=== PATIENT | male | born 1965 | race Caucasian/White ===

== ENCOUNTER 2023-07-15 14:04 | Outpatient (REF) | payer BC, SELFPAY ==
[2023-07-15 16:32] LABS: Urine Cytology See Pathology rpt
== END 2023-07-15 14:05 | disposition home or self-care (01) ==
LOC: HO.LAB 14:04
PROVIDERS: Visit Provider Nurse Practitioner Family
DX: R31.29 Other microscopic hematuria (principal)
CPT/HCPCS: 81003; 88112

== ENCOUNTER 2023-07-15 14:04 | Outpatient (AMB) | payer BC, SELFPAY ==
--- NOTE | 2023-07-15 14:11 | A.OFFVIS_ITS ---
Intake Intake Visit Reasons: Elevated PSA Intake Note: NEW Patient presents today to established treatment for: Elevated PSA Meds- None Allergies to Antibiotic- No Known Allergies Blood Thinner- None Patient stated he feels well today. 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 He has a past medical history of nicotine dependence, insomnia, lumbago, hypercholesteremia, hematuria, orchialgia, CVA, hypertension, and elevated PSA. In discussion with the patient today he reports having followed up with his PCP for his annual visit at which time he was noted to have an elevated PSA and recommendations were made for Urology referral for further assessment evaluation. In review of patient's chart it appears PSA 06/05 5.5. He reports a previous urological history of proximally 10 years ago and having had a procedure to open up his bladder neck. He reports prior to this procedure 10 years ago he had been experiencing lower urinary tract symptoms however since this procedure he has had no issues with his lower urinary tract symptoms. He denies urinary urgency, urinary frequency, incontinence, nocturia, hematuria, dysuria, foul smelling urine, changes to urinary stream, flank pain, fever, and or chills. He is happy with his current voiding parameters. JAN- smooth, no masses or nodules palpated. In office urinalysis results reviewed with the patient today. Microscopic hematuria noted. Does report a longstanding history of nicotine dependence of approximately 25 years. He reports smoking approximately half a pack per day. He otherwise offers no other issues or concerns at this time. [facility] Medical History (Updated 07/15/23 @ 20:12 [facility] Tobacco abuse disorder Insomnia Lumbago Hypercholesteremia Hematuria Orchialgia CVA (cerebral vascular accident) Hypertension Elevated PSA Social History (Updated 07/15/23 @ 14:49 by Marielos Ramsey CMA) Alcohol intake: former Comment: very few Patient Tobacco Use Status: Current everyday Tobacco user Tobacco use type: Cigarette Years Smoked: 23 Review of Systems Const Reports no additional complaints Eyes Reports no additional complaints ENT Reports no additional complaints Card Reports as per HPI Resp Reports no additional complaints GI Reports no additional complaints Reports as per HPI Musc Reports as per HPI Neuro Reports as per HPI Psych Reports no additional complaints Endo Reports no additional complaints Venkatesh/Lymph Reports no additional complaints Aller/Immun Reports no additional complaints Physical Exam Const General: cooperative, healthy appearing, comfortable, no acute distress, well developed, alert and awake Orientation/consciousness: patient oriented x3 Limitations: no limitations HEENT Head: Yes normal to inspection, Yes normocephalic and Yes atraumatic Ears: hearing grossly normal bilaterally Eyes General: appearance normal, both eyes and all related structures Neck Neck: Yes normal visual inspection and Yes trachea midline Chest Chest palpation & inspection: normal inspection of the chest Resp Effort & Inspection: normal respiratory effort and able to speak in complete sentences Cardio Rate: regular rate GI Inspection: Yes normal to inspection General: Yes no CVA tenderness Back/Spine/Pelvis Back: no CVA tenderness Skin General skin exam: no rashes or lesions noted Neuro General: patient oriented x3 Extrem General: Yes normal to inspection Psych Appearance: grossly normal and well kempt Mental Status: mental status grossly normal Speech and movement: Normal speech and movement present and Clear speech present Affect: normal affect Attitude: cooperative Thought process: Normal thought process present Thought content: Normal thought content present Insight: Fair insight present (Psych) Judgement: Fair judgement present (Psych) Results AMB Urinalysis, Automated UA Leukoctes 0 Luis/uL Last Edit by Marielos Ramsey CMA on 07/15/23 14 :32 UA Nitrite Negative Last Edit by Marielos Ramsey CMA on 07/15/23 14: 32 UA Urobilinogen 0.2 mg/dL Last Edit by Marielos Ramsey CMA on 4 14:32 UA Protein 0 mg/dL Last Edit by Marielos Ramsey CMA on 07/15/23 14:32 UA pH 6.0 Last Edit by Marielos Ramsey CMA on 07/15/23 14:32 UA Blood 25 Shane/uL Last Edit by Marielos Ramsey CMA on 07/15/23 14:32 UA Specific Huxley 1.020 Last Edit by Marielos Ramsey CMA on 14:32 UA Ketone Negative Last Edit by Marielos Ramsey CMA on 07/15/23 14:3 2 UA Bilirubin 0 mg/dL Last Edit by Marielos Ramsey CMA on 07/15/23 14: 32 UA Glucose 0 mg/dL Last Edit by Marielos Ramsey CMA on 07/15/23 14:32 Results Reviewed Results Reviewed: Laboratory Last Values Urine pH (Auto) 6.0 07/15/23 14:31 Specific Huxley (Auto) 1.020 07/15/23 14:31 Urine Protein (Auto) 0 mg/dL 07/15/23 14:31 Glucose (UA)(Auto) 0 mg/dL 07/15/23 14:31 Urine Ketones (Auto) Negative 07/15/23 14:31 Urine Blood (Auto) 25 Shane/uL 07/15/23 14:31 Urine Nitrite (Auto) Negative 07/15/23 14:31 Urine Bilirubin (Auto) 0 mg/dL 07/15/23 14:31 Urine Urobilinogen (Auto) 0.2 mg/dL 07/15/23 14:31 Leukocyte Esterase (Auto) 0 Luis/uL 07/15/23 14:31 Assessment & Plan Assessment & Plan (1) Elevated PSA: Code(s): R97.20 - Elevated prostate specific antigen [PSA] (2) Microscopic hematuria: Code(s): R31.29 - Other microscopic hematuria (3) Nicotine dependence: Code(s): F17.200 - Nicotine dependence, unspecified, uncomplicated Plan In office urinalysis results reviewed with the patient today; as noted above; will send for urine cytology. Discussed at length potential causes for elevated PSA. Discussed further treatment options at length. He denies any bothersome urinary issues or concerns. He reports be happy with current voiding parameters. Will obtain redraw of PSA with no sex the night before, no caffeine morning of, and no heavy lifting 1-2 days prior. Will obtain retroperitoneal ultrasound for further assessment evaluation. JAN performed as noted above. Discussed possible near future prostate biopsy verses MRI of the prostate versus surveillance monitoring; discussed risks and benefits of these interventions at length. Discussed at length potential causes of microscopic hematuria Discussed microscopic hematuria workup versus surveillance monitoring; risks and benefits of these interventions were discussed. Follow-up in 6-8 weeks with imaging and labs to be completed prior; or sooner with any issues, concerns, and or questions. Orders: Orders PSA,Total (Free>4and<10) Today R97.20 - Elevated prostate specific antigen [PSA] AMB Urinalysis Automated Today R33.9 - Retention of urine, unspecified Urine Cytology Today R31.29 - Other microscopic hematuria US retroperitoneal comp Today R39.9 - Unspecified symptoms and signs involving the genitourinary system, R97.20 - Elevated prostate specific antigen [PSA] Patient Instructions: The patient had an opportunity to ask questions regarding the treatment plan. All questions were answered. Physical exam, labs, and imaging were discussed and reviewed in detail. As well as risks, benefits, and discussion of treatment choices. No major barriers to understanding were identified. The patient expressed understanding and agreement with the above treatment plan. The patient was made aware they should contact our office by phone for worsening of their current condition, the appearance of new symptoms, or with any questions or concerns. Compliance is encouraged with any medications and follow up testing that is ordered. It is a privilege to be allowed the opportunity to participate in? your urological care.? Again, if you have any questions or concerns If you have any questions or concerns please do not hesitate to contact me. The office is [phone]. This note is constructed using voice recognition software. While every effort has been made to ensure accuracy diversional therapist's assistant errors may have been included. Yours sincerely, NOEMI Reyes Coding Level of Care Code New Pt Level 4 (07680) Diagnoses Elevated PSA R97.20 Microscopic hematuria R31.29 Nicotine dependence F17.200 Time Spent (min) 35
== END 2023-07-15 15:04 | disposition home or self-care (01) ==
PROVIDERS: Visit Provider Nurse Practitioner Family
DX: R97.20 Elevated prostate specific antigen [PSA] (principal); R31.29 Other microscopic hematuria; F17.200 Nicotine dependence, unspecified, uncomplicated; R33.9 Retention of urine, unspecified
CPT/HCPCS: 99204

== ENCOUNTER 2023-08-17 14:22 | Outpatient (REF) | payer BC, SELFPAY ==
--- NOTE | ~2023-08-17 | US_ITS ---
EXAMINATION: US RETROPERITONEAL COMPLETE (RENAL) CLINICAL INFORMATION: Elevated prostate specific antigen. COMPARISON: None available. TECHNIQUE: Real-time imaging of the kidneys and bladder. Limited visualization due to bowel gas. FINDINGS: RIGHT KIDNEY: 11.1 x 6.5 x 6.0 cm (SAG x AP x TRV). No hydronephrosis. No renal calculi. Renal cortical thickness is normal. Limited visualization. LEFT KIDNEY: 11.3 x 6.0 x 5.6 cm (SAG x AP x TRV). No hydronephrosis. No renal calculi. Renal cortical thickness is normal. Limited visualization. . BLADDER: Partially distended.. Bilateral ureteral jets are demonstrated. Prevoid bladder volume is 215 mL. Postvoid bladder volume is 9.8 mL. ADDITIONAL FINDINGS: Enlarged prostate, volume 67.6 mL. Enlarged, lobulated prostate projects into the bladder. Bladder wall is diffusely thickened, however, visualization limited due to suboptimal distention. US/US retroperitoneal comp IMPRESSION: 1. Enlarged prostate, volume 67.6 mL. Enlarged, lobulated prostate projects into the bladder. Bladder wall is diffusely thickened, however, visualization limited due to suboptimal distention. Urology consultation recommended to determine further management. 2. No hydronephrosis. No renal calculi. Renal cortical thickness is normal. Limited visualization.
== END 2023-08-17 14:23 | disposition home or self-care (01) ==
LOC: HO.US 14:22
PROVIDERS: Visit Provider Nurse Practitioner Family
DX: R97.20 Elevated prostate specific antigen [PSA] (principal); R39.9 Unspecified symptoms and signs involving the genitourinary system
CPT/HCPCS: 76770

== ENCOUNTER 2023-09-03 14:44 | Outpatient (AMB) | payer BC, SELFPAY ==
--- NOTE | 2023-09-03 14:44 | A.OFFVIS_ITS ---
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 He has a past medical history of nicotine dependence, insomnia, lumbago, hypercholesteremia, hematuria, orchialgia, CVA, hypertension, and elevated PSA. He is being followed up on today via telehealth for his elevated PSA. Of note, patient was seen approximately 6 weeks ago at which time redraw of PSA was ordered as well as a retroperitoneal ultrasound. These results were reviewed with the patient today. Bilateral kidneys with no hydronephrosis or renal calculi. The bladder is partially distended. Bilateral ureteral jets are demonstrated. Pre void bladder volume is approximately 215 mL. Postvoid bladder volume is approximately 10 mL. Enlarged prostate measuring approximately 68 mL. Enlarged lobulated prostate projects into the bladder. Bladder wall is diffusely thickened however, visualization limited due to suboptimal distention. PSAs are as follows: PSA: 06/05 5.5, 09/02 5.0 PSA % total 4% PCPT risk calculator results reviewed with the patient today. 4% chance that prostate biopsy is negative for prostate cancer, 56% chance of low-grade prostate cancer, and 40% chance of high-grade prostate cancer. Discussed at length surveillance monitoring verses MRI of the prostate verses prostate biopsy. Risks and benefits of these interventions were discussed at length. He reports a previous urological history of approximately 10 years ago and having had a procedure to open up his bladder neck. He reports prior to this procedure 10 years ago he had been experiencing lower urinary tract symptoms however since this procedure he has had no issues with his lower urinary tract symptoms. He denies urinary urgency, urinary frequency, incontinence, nocturia, hematuria, dysuria, foul smelling urine, changes to urinary stream, flank pain, fever, and or chills. He is happy with his current voiding parameters. He denies any known family history of prostate cancer. In office JAN at last office visit noted- smooth, no masses or nodules palpated. During last office visit microscopic hematuria noted on UA and patient with a longstanding history of nicotine dependence of approximately 25 years he smokes approximately a pack of cigarettes per day. Discussed microscopic hematuria workup in the setting of nicotine dependence. This was discussed at length previous cytology results reviewed with the patient today 08/03 Negative for high-grade urothelial carcinoma. He otherwise offers no other issues or concerns at this time [facility] Medical History Tobacco abuse disorder Insomnia Lumbago Hypercholesteremia Hematuria Orchialgia CVA (cerebral vascular accident) Hypertension Elevated PSA Social History (Updated 07/15/23 @ 14:49 by Marielos Ramsey CMA) Alcohol intake: former Comment: very few Patient Tobacco Use Status: Current everyday Tobacco user Tobacco use type: Cigarette Years Smoked: 23 Review of Systems Const Reports no additional complaints Eyes Reports no additional complaints ENT Reports no additional complaints Card Reports as per HPI Resp Reports no additional complaints GI Reports no additional complaints Reports as per HPI Musc Reports as per HPI Neuro Reports as per HPI Psych Reports no additional complaints Endo Reports no additional complaints Venkatesh/Lymph Reports no additional complaints Aller/Immun Reports no additional complaints Physical Exam Const General: cooperative, healthy appearing, comfortable, no acute distress, well developed, alert and awake Orientation/consciousness: patient oriented x3 Resp Effort & Inspection: normal respiratory effort and able to speak in complete sentences Neuro General: patient oriented x3 Psych Appearance: grossly normal and well kempt Mental Status: mental status grossly normal Speech and movement: Normal speech and movement present and Clear speech present Affect: normal affect Attitude: cooperative Thought process: Normal thought process present Thought content: Normal thought content present Insight: Fair insight present (Psych) Judgement: Fair judgement present (Psych) Telehealth Telehealth Telehealth Platform: [facility] Location of provider rendering services: practice address Location of patient: address on file Patient Identification confirmed using: Name, : Yes Telehealth method: video Patient verbally consented to treatment: Yes Patient verbally consented to billing insurance company: Yes Patient informed of any privacy concerns related to visit: Yes Minutes spent on Phone/Video with Pt.: 25 Results Reviewed Results Reviewed: Date of Service: 08/17/23 EXAMINATION: US RETROPERITONEAL COMPLETE (RENAL) FINDINGS: RIGHT KIDNEY: 11.1 x 6.5 x 6.0 cm (SAG x AP x TRV). No hydronephrosis. No renal calculi. Renal cortical thickness is normal. Limited visualization. LEFT KIDNEY: 11.3 x 6.0 x 5.6 cm (SAG x AP x TRV). No hydronephrosis. No renal calculi. Renal cortical thickness is normal. Limited visualization. . BLADDER: Partially distended.. Bilateral ureteral jets are demonstrated. Prevoid bladder volume is 215 mL. Postvoid bladder volume is 9.8 mL. ADDITIONAL FINDINGS: Enlarged prostate, volume 67.6 mL. Enlarged, lobulated prostate projects into the bladder. Bladder wall is diffusely thickened, however, visualization limited due to suboptimal distention. IMPRESSION: 1. Enlarged prostate, volume 67.6 mL. Enlarged, lobulated prostate projects into the bladder. Bladder wall is diffusely thickened, however, visualization limited due to suboptimal distention. Urology consultation recommended to determine further management. 2. No hydronephrosis. No renal calculi. Renal cortical thickness is normal. Limited visualization. Assessment & Plan Assessment & Plan (1) Elevated PSA: Code(s): R97.20 - Elevated prostate specific antigen [PSA] Category: Medical (2) Enlarged prostate: Code(s): N40.0 - Benign prostatic hyperplasia without lower urinary tract symptoms Category: Medical (3) Bladder wall thickening: Code(s): N32.89 - Other specified disorders of bladder Category: Medical Plan: Plan Risks and benefits regarding trans rectal ultrasound with prostate biopsy were discussed.? Options of continued surveillance, no treatment and biopsy were offered. The risks include but are not limited to, urinary tract infection, sepsis, difficulty urinating, bleeding into the rectum or bladder that requires intervention and transfusion,and failure to diagnose prostate cancer. The patient understands the options and the risks involved. They wish to proceed. Printed information was provided to ensure he remains off anticoagulation for the appropriate length of time. He may require cardiology or PCP clearance.? An antibiotic will be administered prior to, and following the procedure Plan Recent retroperitoneal ultrasound results reviewed with the patient today; as noted above. Recent PSA results reviewed with the patient today; as noted above. PCPT risk calculator results reviewed with the patient today; as noted above. Discussed further treatment options of elevated PSA to include MRI of the prostate verses surveillance monitoring versus prostate biopsy; risks and benefits of these interventions were discussed at length. Recent urine cytology results reviewed with the patient today; as noted above. Patient currently denies any bothersome urinary issues or concerns. He reports be happy with current voiding parameters Will schedule for prostate biopsy as discussed. Antibiotic prescription provided; discussed specific instructions of medication day before, day of, and day after surgical procedure. Follow-up postop per Dr. Green's order; or sooner with any issues, concerns, and or questions. Medications: New levofloxacin take 1 tablet day before procedure, 1 tablet day of procedure and 1 tablet day after procedure 500 mg PO daily 3 days 3 tabs 0RF Patient Instructions: The patient had an opportunity to ask questions regarding the treatment plan. All questions were answered. Physical exam, labs, and imaging were discussed and reviewed in detail. As well as risks, benefits, and discussion of treatment choices. No major barriers to understanding were identified. The patient expressed understanding and agreement with the above treatment plan. The patient was made aware they should contact our office by phone for worsening of their current condition, the appearance of new symptoms, or with any questions or concerns. Compliance is encouraged with any medications and follow up testing that is ordered. It is a privilege to be allowed the opportunity to participate in? your urological care.? Again, if you have any questions or concerns If you have any questions or concerns please do not hesitate to contact me. The office is [phone]. This note is constructed using voice recognition software. While every effort has been made to ensure accuracy supervisory it specialist errors may have been included. Yours sincerely, NOEMI Reyes Coding Level of Care Code Tele Est Pt Level 4 (93431) Diagnoses Elevated PSA R97.20 Enlarged prostate N40.0 Bladder wall thickening N32.89
== END 2023-09-03 16:22 | disposition home or self-care (01) ==
LOC: HO.HUSH 14:44
PROVIDERS: PCP Pediatrics; Referring Provider Pediatrics; Visit Provider Nurse Practitioner Family
DX: R97.20 Elevated prostate specific antigen [PSA] (principal); N40.0 Benign prostatic hyperplasia without lower urinary tract symptoms; N32.89 Other specified disorders of bladder
CPT/HCPCS: 99214

== ENCOUNTER → 2023-09-03 14:44 | Outpatient (BNVA) | payer BC, SELFPAY | PROVIDERS: PCP Pediatrics; Visit Provider Nurse Practitioner Family ==

== ENCOUNTER 2023-10-26 07:42 | Outpatient (REF) | payer BC, SELFPAY ==
--- NOTE | 2023-10-26 08:23 | P.OP_ITS ---
Operative Note Operative Note Date of Service: 10/26/23 Narrative: Preoperative diagnosis: Elevated PSA Postoperative diagnosis: Elevated PSA Procedure: 1. transrectal ultrasound measurement of prostate 2. transrectal ultrasound-guided pudendal nerve block 3. transrectal ultrasound-guided prostate biopsy 12 core Surgeon: Dr. Javed Green Anesthetic: 10cc 1% lidocaine Indications for procedure: Elevated PSA - PSA 5 Free 4% Counselling: Technical aspects, risks and benefits of proposed procedure were discussed in full. All questions have been answered, written consent has been obtained and patient agrees to proceed. Procedure: The patient was brought into the procedure area and placed in a left lateral decubitus position. Patient identity confirmed. Perioperative antibiotics confirmed. Safety pause time out performed. JAN performed to dilate rectal sphincter Iodine 10cc with 60 cc gel was placed per rectum to reduce infection risk using a catheter tip syringe. 8 Hz Ana rectal end-fire ultrasound probe was placed transrectally without difficulty. The prostate was visualized. Seminal vesicles were normal. Prostate margins were clearly demarcated. Bladder was seen superiorly. No cystic structures were noted No calcifications were noted at the surgical margin The prostate was otherwise heterogenous in nature The prostate was measured in 3 dimensions Prostatic Width: 5.3 Prostatic Height: 5.1 Urethral Length:5.8 Total volume equals : 82 gm An ultrasound-guided pudendal nerve block was performed using a 22 gauge spinal needle in the sagittal plane. 4 cc of 1% lidocaine placed at the junction of each seminal vesicle and 2 cc placed at the apex of the prostate. A 12 core biopsy was performed with 6 cores each side using an 18 gauge prostate biopsy gun. Two cores were taken at the apex, mid and base. Cores were spaced between lateral and medial. Each core was examined as placed on specimen foam as part of clinical quality assurance specialist to ensure minimum 1 cm of length and minimal discontinuity. He tolerated the procedure well, minimal rectal bleeding. Blood pressure remained stable following procedure. Was able to ambulate to bathroom after 5 minutes. Printed instructions regarding antibiotic use and common side effects from the procedure such as low-grade temperature, potential infection and bleeding were given Pathology: 12 core prostate biopsy
[2023-10-26] MEDS: Lidocaine HCl 1 % MPF 5 ML VIAL 10 ML SUBCUT (08:31)
== END 2023-10-26 07:43 | disposition home or self-care (01) ==
LOC: HO.US 07:42
PROVIDERS: PCP Pediatrics; Visit Provider Urology
DX: R97.20 Elevated prostate specific antigen [PSA] (principal)
CPT/HCPCS: 55700; 76942; 88305; 88344

== ENCOUNTER → 2023-10-26 07:42 | Outpatient (BNV) | payer BC, SELFPAY | PROVIDERS: PCP Pediatrics; Visit Provider Urology | DX: R97.20 Elevated prostate specific antigen [PSA] (principal) | CPT/HCPCS: 55700; 76942 ==

== ENCOUNTER 2023-11-12 14:03 | Outpatient (AMB) | payer BC, SELFPAY ==
--- NOTE | 2023-11-12 14:03 | A.OFFVIS_ITS ---
Intake Visit Reasons: Prostate biopsy results Intake Note: Patient is Present For Prostate Biopsy Results Urology Med: None Antibiotic Allergies:None Blood Thinner: None [employer] Required: No Allergies No Known Allergies Allergy (Verified 11/12/23 14:03) Medication List - Last Reconciled 11/12/23 by Javed Green MD amlodipine 10 mg PO DAILY atorvastatin 80 mg PO DAILY betamethasone dipropionate 0.05% appl topical ketoconazole 2% topical losartan 25 mg PO DAILY HPI Comments Details: Anatoliy is a pleasant male. He is a patient of Dr. Ospina. He seen for the following urologic conditions - prostate cancer Telemedicine Evaluation 15 min Consultation DoxIsonas Lu Video attempted Discussed prostate biopsy Small volume, grade group 2 prostate adenocarcinoma Proceed with prostate MRI for intervention planning Will also obtain tissue genetics to help with personalized therapy decision making Prostate cancer - 11/0224 grade group 2, ultra low volume PSA 09/02 5.0 Free 4% Size at TRUS - 80gm pT1c Histologic type: Adenocarcinoma, acinar type Histologic grade: Bard score: 3+4=7 (left mid lateral 15% and medial 5%; right base medial 15%) % of pattern 4: 30% Grade group: 2 Number cores positive: 3 Total number of cores: 12 % of tissue involved: Less than 5% of all tissue examined [facility] Medical History Tobacco abuse disorder Insomnia Lumbago Hypercholesteremia Hematuria Orchialgia CVA (cerebral vascular accident) Hypertension Elevated PSA Social History Alcohol intake: former Comment: very few Patient Tobacco Use Status: Current everyday Tobacco user Tobacco use type: Cigarette Years Smoked: 23 Review of Systems Const All systems reviewed & are unremarkable except as noted in HPI and below Reports no additional complaints Resp Reports no additional complaints GI Reports no additional complaints Reports as per HPI Musc Reports no additional complaints Physical Exam Telemedicine evaluation Appropriate responses Regular breathing rate and rhythm HEENT Head: Yes normal to inspection Ears: hearing grossly normal bilaterally Eyes General: appearance normal, both eyes and all related structures Neck Neck: Yes normal visual inspection Chest Chest palpation & inspection: normal inspection of the chest Resp Effort & Inspection: normal respiratory effort and able to speak in complete se ntences Telehealth Telehealth Telehealth Platform: [employer] Location of provider rendering services: practice address Location of patient: address on file Patient Identification confirmed using: Name, : Yes Telehealth method: video Patient verbally consented to treatment: Yes Patient verbally consented to billing insurance company: Yes Patient informed of any privacy concerns related to visit: Yes Assessment & Plan Assessment & Plan (1) Prostate cancer: Code(s): C61 - Malignant neoplasm of prostate Category: Medical Plan Prostate MRI Prolaris 4 week follow-up Orders: Orders MR pelvis wo/w con 4 Weeks C61 - Malignant neoplasm of prostate Patient Instructions: Imaging studies, laboratory and physical exam results were discussed and reviewed in detail. No major barriers to patient understanding were identified. An opportunity to ask questions regarding the treatment plan was provided. All questions were answered. The patient expressed understanding and agreement with the above treatment plan. The patient is aware they should contact our office by phone for worsening of their current condition or the appearance of new urologic symptoms. Compliance is encouraged with any medications and followup testing that is ordered. It is a privilege to participate in the urologic care of your patient. If you have any questions or concerns regarding treatment for the above conditions, or other urologic issues, please do not hesitate to contact me. The office telephone contact is [phone]. This note is constructed using voice recognition software. While every effort has been made to ensure accuracy fishing hand errors may have been included. Yours sincerely, Dr Javed Green MD, ANGELA [facility] - Urology Providers of Expert, Compassionate Care for the Genitourinary System Coding Level of Care Code Tele Est Pt Level 4 (17030) Diagnoses Prostate cancer C61
== END 2023-11-12 14:59 | disposition home or self-care (01) ==
LOC: HO.HUSH 14:03
PROVIDERS: PCP Pediatrics; Referring Provider Pediatrics; Visit Provider Urology
DX: C61 Malignant neoplasm of prostate (principal)
CPT/HCPCS: 99214

== ENCOUNTER → 2023-11-12 14:03 | Outpatient (BNVA) | payer BC, SELFPAY | PROVIDERS: PCP Pediatrics; Visit Provider Urology ==

== ENCOUNTER 2023-12-23 14:40 | Outpatient (AMB) | payer BC, SELFPAY ==
--- NOTE | 2023-12-23 14:36 | MHC.OFFVIS ---
Intake Visit Reasons: 6w/MRI(set) Allergies No Known Allergies Allergy (Verified 11/12/23 14:03) HPI Comments Details: Anatoliy is a pleasant male. He is a patient of Dr. Ospina. He seen for the following urologic conditions - prostate cancer Here for discussion of imaging and staging - accompanied by his . Printed copies provided of pathology, imaging, genetics. Small volume, grade group 2 prostate adenocarcinoma Prolaris - low risk, recommend active surveillance MRI - 70 g prostate, no clear area of abnormality Based on staging and genetic review will start with active surveillance protocol 4 month follow-up PSA Finasteride alternating months Prostate cancer - 11/0224 grade group 2, ultra low volume PSA 09/02 5.0 Free 4% Size at TRUS - 80gm pT1c Histologic type: Adenocarcinoma, acinar type Histologic grade: [place] score: 3+4=7 (left mid lateral 15% and medial 5%; right base medial 15%) % of pattern 4: 30% Grade group: 2 Number cores positive: 3 Total number of cores: 12 % of tissue involved: Less than 5% of all tissue examined [facility] Medical History Tobacco abuse disorder Insomnia Lumbago Hypercholesteremia Hematuria Orchialgia CVA (cerebral vascular accident) Hypertension Elevated PSA Social History Alcohol intake: former Comment: very few Patient Tobacco Use Status: Current everyday Tobacco user Tobacco use type: Cigarette Years Smoked: 23 Review of Systems Const Denies chills and Denies fever(s) Card Reports no additional complaints and Denies syncope Resp Denies cough GI Denies abdominal pain and Denies heartburn Reports as per HPI and Denies change in libido Neuro Denies syncope Psych Denies change in libido Endo Denies change in libido Physical Exam Const General: cooperative, healthy appearing, comfortable and no acute distress Orientation/consciousness: patient oriented x3 HEENT Face and sinus: Yes normal facial exam Mouth: moist mucous membranes Neck Neck: Yes normal visual inspection, Yes full ROM and Yes trachea midline Chest Chest palpation & inspection: normal inspection of the chest Resp Effort & Inspection: normal respiratory effort, able to speak in complete sentences and no respiratory distress GI Inspection: Yes normal to inspection Back/Spine/Pelvis Cervical Spine: normal cervical lordosis Thoracic/Lumbar Spine: thoracic and lumbar spine normal to inspection Skin General skin exam: no rashes or lesions noted Neuro General: patient oriented x3, gait normal, tone normal and moves all extremities Extrem General: Yes normal to inspection and Yes capillary refill normal Assessment & Plan Assessment & Plan (1) Prostate cancer: Code(s): C61 - Malignant neoplasm of prostate Category: Medical Plan Four month follow-up PSA Orders: Orders PSA,Total (Free>4and<10) 4 Months C61 - Malignant neoplasm of prostate Medications: New finasteride month on, month off 5 mg PO DAILY 90 tabs 1RF 90 days C61 - Malignant neoplasm of prostate Patient Instructions: Imaging studies, laboratory and physical exam results were discussed and reviewed in detail. No major barriers to patient understanding were identified. An opportunity to ask questions regarding the treatment plan was provided. All questions were answered. The patient expressed understanding and agreement with the above treatment plan. The patient is aware they should contact our office by phone for worsening of their current condition or the appearance of new urologic symptoms. Compliance is encouraged with any medications and followup testing that is ordered. It is a privilege to participate in the urologic care of your patient. If you have any questions or concerns regarding treatment for the above conditions, or other urologic issues, please do not hesitate to contact me. The office telephone contact is [phone]. This note is constructed using voice recognition software. While every effort has been made to ensure accuracy database report writer errors may have been included. Yours sincerely, Dr Javed Green MD, ANGELA [facility] - Urology Providers of Expert, Compassionate Care for the Genitourinary System Coding Level of Care Code Est Pt Level 4 (04184) Diagnoses Prostate cancer C61
== END 2023-12-23 14:59 | disposition home or self-care (01) ==
PROVIDERS: PCP Pediatrics; Visit Provider Urology
DX: C61 Malignant neoplasm of prostate (principal)
CPT/HCPCS: 99214

== ENCOUNTER → 2023-12-23 14:40 | Outpatient (BNVA) | payer BC, SELFPAY | PROVIDERS: PCP Pediatrics; Visit Provider Urology ==

== ENCOUNTER 2024-04-25 10:55 | Outpatient (AMB) | payer BC, SELFPAY ==
--- NOTE | 2024-04-25 10:55 | A.OFFVIS_ITS ---
Intake Visit Reasons: 4M PSA(set) Intake Note: Patient is present for 4M PSA Urology Medication:FINASTERIDE Antibiotic Allergy:NONE Blood Thinner:NONE Taper And Floater Required: No Allergies No Known Allergies Allergy (Verified 04/25/24 10:56) HPI Comments Details: Anatoliy is a pleasant male. He is a patient of Dr. Ospina. He seen for the following urologic conditions - prostate cancer Telemedicine Evaluation 15 min Consultation D[employer] LIST Lu Video 4 month lab review PSA 05/06 3.7 Encourage monthly cycling of finasteride Small volume, grade group 2 prostate adenocarcinoma Prolaris - low risk, recommend active surveillance MRI - 70 g prostate, no clear area of abnormality, PiRADS 2 Based on staging and genetic review will start with active surveillance protocol 4 month follow-up PSA Prostate cancer - 11/0224 Grade Group 2, Ultra low volume - (NCCN 2.4) PSA 09/02 5.0 Free 4% Size at TRUS - 80gm pT1c Histologic type: Adenocarcinoma, acinar type Histologic grade: Kelsea score: 3+4=7 (left mid lateral 15% and medial 5%; right base medial 15%) % of pattern 4: 30% Grade group: 2 Number cores positive: 3 Total number of cores: 12 % of tissue involved: Less than 5% of all tissue examined [facility] Medical History Tobacco abuse disorder Insomnia Lumbago Hypercholesteremia Hematuria Orchialgia CVA (cerebral vascular accident) Hypertension Elevated PSA Social History Alcohol intake: former Comment: very few Patient Tobacco Use Status: Current everyday Tobacco user Tobacco use type: Cigarette Years Smoked: 23 Review of Systems Const All systems reviewed & are unremarkable except as noted in HPI and below Reports no additional complaints Resp Reports no additional complaints GI Reports no additional complaints Reports as per HPI Musc Reports no additional complaints Physical Exam Telemedicine evaluation Appropriate responses Regular breathing rate and rhythm HEENT Head: Yes normal to inspection Ears: hearing grossly normal bilaterally Eyes General: appearance normal, both eyes and all related structures Neck Neck: Yes normal visual inspection Chest Chest palpation & inspection: normal inspection of the chest Resp Effort & Inspection: normal respiratory effort and able to speak in complete sentences Telehealth Telehealth Telehealth Platform: [employer] Location of provider rendering services: practice address Location of patient: address on file Patient Identification confirmed using: Name, : Yes Telehealth method: video Patient verbally consented to treatment: Yes Patient verbally consented to billing insurance company: Yes Patient informed of any privacy concerns related to visit: Yes Minutes spent on Phone/Video with Pt.: 15 Assessment & Plan Assessment & Plan (1) Prostate cancer: Comment: Grade group 2, ultra low volume Code(s): C61 - Malignant neoplasm of prostate Category: Medical Plan 4 month follow-up PSA Patient Instructions: Imaging studies, laboratory and physical exam results were discussed and reviewed in detail. No major barriers to patient understanding were identified. An opportunity to ask questions regarding the treatment plan was provided. All questions were answered. The patient expressed understanding and agreement with the above treatment plan. The patient is aware they should contact our office by phone for worsening of their current condition or the appearance of new urologic symptoms. Compliance is encouraged with any medications and followup testing that is ordered. It is a privilege to participate in the urologic care of your patient. If you have any questions or concerns regarding treatment for the above conditions, or other urologic issues, please do not hesitate to contact me. The office telephone contact is [phone]. This note is constructed using voice recognition software. While every effort has been made to ensure accuracy carpenter errors may have been included. Yours sincerely, Dr Javed Green MD, ANGELA [facility] - Urology Providers of Expert, Compassionate Care for the Genitourinary System Coding Level of Care Code Tele Est Pt Level 3 (38467) Diagnoses Prostate cancer C61
== END 2024-04-25 11:22 | disposition home or self-care (01) ==
LOC: HO.HUSH 10:55
PROVIDERS: PCP Pediatrics; Visit Provider Urology
DX: C61 Malignant neoplasm of prostate (principal)
CPT/HCPCS: 99213

== ENCOUNTER → 2024-04-25 10:55 | Outpatient (BNVA) | payer BC, SELFPAY | PROVIDERS: PCP Pediatrics; Visit Provider Urology ==

== ENCOUNTER 2024-08-23 13:17 | Outpatient (AMB) | payer BC, SELFPAY ==
--- OUTSIDE RECORDS SUMMARY | 2024-08-23 13:30 | XMS_ITS ---
Author Name [facility] Organization Unknown Encounters Encounter Type Encounter Reason Primary Diagnosis Location Date Ambulatory [facility] 08/21/2024 Ambulatory [facility] 07/17/2024 Ambulatory [facility] 06/14/2024 Ambulatory [facility] 05/04/2024 Ambulatory [facility] 04/06/2024 Ambulatory [facility] 03/01/2024 Care Team Organization Name Specialty Phone Email Start Date End Da te [facility] Primary Care 03/05/2024 [facility] 03/03/2024 [facility] 10/01/2022 [facility] 09/09/2022 09/09/2022 [facility] 05/26/2022
--- OUTSIDE RECORDS SUMMARY | 2024-08-23 13:30 | XMS_ITS | Clinical Summary ---
Author Organization [facility] [address] [facility] Address [address] [place] [address] Phone Care Team Providers Care Heavy Threader Name Role Phone Kimberly Aguilar MD Primary Care Provider [phone] Allergies No known active allergies Medications aspirin 81 mg EC tablet Take 1 Tablet by mouth daily. 12/08/2023 Active atorvastatin (LIPITOR) 80 mg tablet Take 1 Tablet by mouth daily. 12/08/2023 Active betamethasone, augmented, (DIPROLENE-AF) 0.05 % cream Apply bid prn rash 12/08/2023 Active finasteride (PROSCAR) 5 mg tablet TAKE 1 TABLET BY MOUTH EVERY DAY FOR 90 DAYS CALENDAR MONTH ON, CALENDAR MONTH OFF 12/23/2023 Active ketoconazole (NIZORAL) 2 % shampoo Apply weekly prn rash 12/08/2023 Active amLODIPine (NORVASC) 10 mg tablet TAKE 1 TABLET BY MOUTH EVERY DAY 90 tablet 05/31/2024 Active losartan (COZAAR) 25 mg tablet TAKE 1 TABLET BY MOUTH EVERY DAY 90 tablet 1 06/21/2024 Active Active Problems Problem Noted Date Diagnosed Date Overweight (BMI 25.0-29.9) 07/18/2024 Elevated blood sugar 05/18/2023 Overview (03/01/2024): 06/05 Elevated PSA 07/01/2022 Overview (03/01/2024): 07/02 BX 7 Hypertension 02/25/2022 CVA (cerebral vascular accident) (CMS/HCC V24, C MS/HCC V28) 02/09/2022 Overview (03/01/2024): 01/31. Occipital. 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 Seen by urology. LV 04/25. Did not follow up Hematuria 09/29/2011 Overview (03/01/2024): 08/21. CT neg Cytology normal, cystoscopy with papilloma Hypercholesteremia 05/23/2009 Overview (03/01/2024): Prev declined med. Declined 02/23 Insomnia 05/02/2009 Lumbago 05/02/2009 Overview (03/01/2024): Chronic x 2000 with intermittent flareups--better with PT Tobacco use disorder 05/02/2009 Encounters Date Type Department Care Team Description 08/21/2024 11:25 AM EDT Ancillary Procedure Cardiac Arrythmia - [place] [address] [place] [address] Arrived 08/14/2024 Telephone Adult Medicine - [place] [address] [place] [phone] Kimberly Aguilar MD Referral (Urology Insurance Referral) 07/21/2024 Telephone Gastroenterology - [address] [place] [phone] Liam Cates MD 07/18/2024 3:30 PM EDT Office Visit Adult Medicine - [place] [address] [place] [address] Kimberly Aguilar MD Routine general medical examination at a health care facility (Primary Dx); Need for Tdap vaccination; Hypertension, unspecified type; Hypercholesteremia; Cerebrovascular accident (CVA), unspecified mechanism (CMS/HCC V24, CMS/HCC V28); Colon cancer screening; Overweight (BMI 25.0-29.9); Tobacco use disorder 07/17/2024 11:20 AM EDT Ancillary Procedure Cardiac Arrythmia - [place] [address] [place] [address] 06/14/2024 6:30 PM EST Ancillary Procedure Cardiac Arrythmia - [place] [address] [place] [address] from Last 3 Months Immunizations Name Administration Dates Next Due Influenza Quadravalent, MDCK , 0.5ml, preservative free (Flucelvax) 6mo and older 02/25/2022 Influenza trivalent, 0.5mL, preservative free (Fluarix; FluLaval; Fluzone) ages 6mo and older (Afluria) 3 years and older 02/16/2014 Td Tetanus diptheria (Tdvax) 7yo and older 01/10 Tdap Tetanus diptheria acell ular pertussis (Boostrix; Adacel) 7yo and older 07/18/2024,02/16/2014 Medical History Medical History Date Comments Hematuria 09/29/2011 DX:Hematuria Hypertension Hypercholesterolemia Cerebrovascular accident (CV A), unspecified mechanism ([facility] V24, [facility] V28) Tobacco use Orchialgia Hematuria Family History Medical History Relation Name Comments Diabetes Father Other: heart valve replacement Mother Hyperlipidemia Other 1 Relation Name Status Comments Father Mother Other 1 Other 2 Social History Tobacco Use Types Packs/Day Years Used Date Smoking Tobacco: Every Day Cigarettes 1 42.4 Started: 1982 Smokeless Tobacco: Never Tobacco Cessation:Ready to Q uit: Not Asked; Counseling Given: Not Answered Alcohol Use Standard Drinks/Week Comments Yes 0 (1 standard drink = 0.6 oz pur e alcohol) social Sex and Gender Information Value Date Recorded Sex Assigned at Not on file Legal Sex Male 5:13 PM EST Gender Identity Not on file Sexual Orientation Not on file Obstetrics History Last Filed Vital Signs Vital Sign Reading Time Taken Comments Blood Pressure 136/64 07/18/2024 3:38 PM EDT Pulse 59 07/18/2024 3:38 PM EDT Temperature 36.8 ??C (98.3 ??F) 07/18/2024 3:38 PM ED T Respiratory Rate - - Oxygen Saturation - - Inhaled Oxygen Concentration - - Weight 80.7 kg (178 lb) 07/18/2024 3:38 PM EDT Height 172.7 cm (5' 8 ) 07/18/2024 3:38 PM EDT Body Mass Index 27.06 07/18/2024 3:38 PM EDT Plan of Treatment Upcoming Encounters Date Type Department Care Team (Late st Contact Info) Description 08/31/2024 3:15 PM EDT Clinical Support Lung Screening Program - [place] [address] [facility] [address] [place] [phone] 08/31/2024 3:45 PM EDT Appointment [facility] Scan [address] [place] [address] 02/06/2025 2:45 PM EDT Office Visit Adult Medicine - [place] [address] [place] [address] Kimberly Aguilar MD [address] [place] [address] Health Maintenance Due Date Last Done Comments COVID-19 Vaccine (#1) 1968 Pneumococcal Vaccine: 50+ Years (1 of 2 - PCV) 1982 Pneumococcal Vaccine: Pediatrics (0 to 5 Years) and At-Risk Patients (6 to 64 Years) (1 of 2 - PCV) 1982 Zoster Vaccines (1 of 2) 1982 Colorectal Cancer Screening: Colonoscopy 03/14/2022 Depression Screening 03/14/2022 HIV Screening 03/14/2022 Hepatitis C Screening 03/14/2022 Lung Cancer Screening (Low Dose CT) 03/14/2022 Social Influencers of Health Screening 03/14/2022 Influenza Vaccine (Season Ended) 2024 02/25/2022, 02/16/2014 Hypertension/CHF/CAD Annual BMP Blood Test 07/13/2025 07/13/2024, 05/14/2023, 02/08/2022, Additional history exists Cholesterol Screening (Lipid Panel) 07/13/2029 07/13/2024, 05/14/2023, 02/06/2022, Additional history exists DTaP,Tdap,and Td Vaccines (4 - Td or Tdap) 07/18/2034 07/18/2024, 02/16/2014, 01/11/2008 RSV Immunization Adult Patients (1 - 1-dose 75+ series) 2038 HIB Vaccines Aged Out No longer eligi ble based on patient's age to complete this topic HPV Vaccines Aged Out No longer eligi ble based on patient's age to complete this topic Hepatitis A Vaccines Aged Out No long er eligible based on patient's age to complete this topic Hepatitis B Vaccines Aged Out No long er eligible based on patient's age to complete this topic IPV Vaccines Aged Out No longer eligi ble based on patient's age to complete this topic MMR Vaccines Aged Out No longer eligi ble based on patient's age to complete this topic Meningococcal ACWY Vaccine Aged Out N o longer eligible based on patient's age to complete this topic Meningococcal B Vaccine Aged Out No l onger eligible based on patient's age to complete this topic RSV Immunization Patients Under 20 months Aged Out No longer eligible based on patient's age to complete this topic Varicella Vaccines Aged Out No longer eligible based on patient's age to complete this topic Medical Devices Implanted Type Area Certified Alcohol Counselor Device Identifier Shelf Expiration Date Model / Serial / Lot Medt-Card [id number] Implanted:06/10 (Quantity not on file) Cardiac Loop Recorder [employer] - CARDIAC RHYTH-CRDM [id number] / [id number] / Procedures Procedure Name Priority Date/Time Associated Diagnosis Comments CARDIAC DEVICE CHECK- REMOTE- MURJ Routine 08/21/2024 11:20 AM EDT PROSTATE SPECIFIC ANTIGEN SCREEN Routine 08/18/2024 2:18 PM EDT Malignant neoplasm of prostate (CMS/HCC V24, CMS/HCC V28) Benign enlargement of prostate Microscopic hematuria Elevated prostate specific antigen (PSA) CARDIAC DEVICE CHECK- REMOTE- MURJ Routine 07/17/2024 11:19 AM EDT COMPREHENSIVE METABOLIC PANEL Routine 07/13/2024 3:20 PM EDT Hypercholesteremia Elevated blood sugar LIPID PANEL WITH REFLEX TO DIRECT LDL Routine 07/13/2024 3:20 PM EDT Hypercholesteremia HEMOGLOBIN A1C Routine 07/13/2024 3:20 PM EDT Elevated blood sugar CARDIAC DEVICE CHECK- REMOTE- MURJ Routine 06/14/2024 6:25 PM EST from Last 3 Months Results * Cardiac device check - Remote- MURJ (08/21/2024 11:20 AM EDT) Only the most recent of3 resultswithin the time period is included. Date Time Interrogation Session [id number] CV DEVICE CHECK Type Interrogation Session Remote CV DEVICE CHECK Implantable Pulse Generator Certified Alcohol Counselor MDT CV DEVICE CHECK Implantable Pulse Generator Type ILR CV DEVICE CHECK Implantable Pulse Generator Model [id number] CV DEVICE CHECK Implantable Pulse Generator Serial Number [id number] CV DEVICE CHECK Implantable Pulse Generator Implant Date [id number] CV DEVICE CHECK Date of Service 2024-08-17 CV DEVICE CHECK Anatomical Region Laterality Modality Device Interroga tion 08/09/2024 11:0 6 PM EDT Impressions 08/20/2024 4:51 PM EDT Normal Remote: No Events * This is a normal remote diagnostic device check * Alerts or events: None * Battery data was reviewed * Battery status: Good * Presenting rhythm reviewed * Heart Rate Histograms reviewed Narrative Procedure Note John Gates MD - 08/21/2024 IMPRESSION: Normal Remote: No Events * This is a normal remote diagnostic device check * Alerts or events: None * Battery data was reviewed * Battery status: Good * Presenting rhythm reviewed * Heart Rate Histograms reviewed John Gates MD CV IMPLANTABLE CARDIAC DEVICE UT OCEDURES Final Result * Prostate specific antigen screen (08/18/2024 2:18 PM EDT) PSA 3.86 0.00 - 4.00 ng/mL LAB CHEMISTRY METHOD 08/18/2024 6:12 PM EDT [facility] Blood Venous blood specimen / Unknown Venipuncture / Unknown 08/18/2024 2:18 PM EDT 08/18/2024 2:22 PM EDT Narrative [facility] - 08/18/2024 6:12 PM EDT The Siemens Advia Centaur Chemiluminescent Immunoassay is used. Results obtained with different assay methods or kits cannot be used interchangeably. Results cannot be interpreted as absolute evidence of the presence or absence of malignant disease. us Javed Green MD LAB BLOOD ORDERABLES Final Re sult [facility] [address] [place] [address], [place] [phone] * (ABNORMAL) Lipid panel with reflex to direct LDL (07/13/2024 3:20 PM EDT) Cholesterol 235(H) 0 - 200 mg/dL LAB CHEMISTRY METHOD 07/13/2024 6:41 PM EDT [facility] Triglycerides 152(H) 0 - 150 mg/dL LAB CHEMISTRY METHOD 07/13/2024 6:41 PM EDT [facility] HDL 64 >=40 mg/dL LAB CHEMISTRY METHOD 07/13/2024 6:41 PM EDT [facility] LDL Calculated 141(H) 0 - 100 mg/dL LAB CHEMISTRY METHOD 07/13/2024 6:41 PM EDT [facility] VLDL Cholesterol Julio 30.4 mg/dL LAB CHEMISTRY METHOD 07/13/2024 6:41 PM EDT [facility] Non HDL Chol. (LDL+VLDL) 171(H) <145 mg/dL LAB CHEMISTRY METHOD 07/13/2024 6:41 PM EDT [facility] Chol/HDL Ratio 3.7 0.0 - 4.4 LAB CHEMISTRY METHOD 07/13/2024 6:41 PM T [facility] Blood Venous blood specimen / Unknown Venipuncture / Unknown 07/13/2024 3:20 PM EDT 07/13/2024 3:20 PM EDT us C Ross Aguilar MD LAB BLOOD ORDERABLES Final Res ult Performing Organization Address City/[facility]/ZIP Co de Phone Number [facility] [address] [place] [address], [place] [phone] * Hemoglobin A1c (07/13/2024 3:20 PM EDT) Pathologist [facility] Hemoglobin A1C 5.6 <6.5 % LAB CHEMISTRY METHOD 07/13/2024 11:07 PM EDT [facility] Mean Bld Glu Estim. 114 mg/dL LAB CHEMISTRY METHOD 07/13/2024 11:07 PM EDT [facility] Blood Venous blood specimen / Unknown Venipuncture / Unknown 07/13/2024 3:20 PM EDT 07/13/2024 3:20 PM EDT us C Ross Aguilar MD LAB BLOOD ORDERABLES Final Res ult Performing Organization Address City/[facility]/ZIP Co de Phone Number [facility] [address] [place] [address], [place] [phone] * Comprehensive metabolic panel (07/13/2024 3:20 PM EDT) [facility] Sodium 139 133 - 145 mmol/L LAB CHEMISTRY METHOD 07/13/2024 6:41 PM EDT [facility] Potassium 3.6 3.5 - 5.5 mmol/L LAB CHEMISTRY METHOD 07/13/2024 6:41 PM EDT [facility] Chloride 106 96 - 110 mmol/L LAB CHEMISTRY METHOD 07/13/2024 6:41 PM EDT [facility] CO2 23 21 - 32 mmol/L LAB CHEMISTRY METHOD 07/13/2024 6:41 PM EDT [facility] Anion Gap 10 3 - 11 LAB CHEMISTRY METHOD 07/13/2024 6:41 PM EDT [facility] Glucose 92 70 - 100 mg/dL LAB CHEMISTRY METHOD 07/13/2024 6:41 PM [facility] BUN 20 5 - 25 mg/dL LAB CHEMISTRY METHOD 07/13/2024 6:41 PM [facility] Creatinine 0.99 0.70 - 1.30 mg/dL LAB CHEMISTRY METHOD 07/13/2024 6:41 PM [facility] eGFR 87 >=60 mL/min/1. 73m2 LAB CHEMISTRY METHOD 07/13/2024 6:41 PM [facility] Comment:Calculation based on the??Chronic Kidney Disease Epidemiology Collaboration (CKD-EPI) equation refit??without adjustment for race. BUN/Creatinine Ratio 20.2 LAB CHEMISTRY METHOD 07/13/2024 6:41 PM [facility] Calcium 9.4 8.5 - 10.5 mg/dL LAB CHEMISTRY METHOD 07/13/2024 6:41 PM [facility] AST (SGOT) 16 10 - 42 unit/L LAB CHEMISTRY METHOD 07/13/2024 6:41 PM [facility] ALT (SGPT) 19 10 - 60 unit/L LAB CHEMISTRY METHOD 07/13/2024 6:41 PM [facility] Alkaline Phosphatase 95 42 - 121 unit/L LAB CHEMISTRY METHOD 07/13/2024 6:41 PM [facility] Total Protein 7.4 6.0 - 8.0 g/dL LAB CHEMISTRY METHOD 07/13/2024 6:41 PM [facility] Albumin 4.2 3.2 - 5.0 g/dL LAB CHEMISTRY METHOD 07/13/2024 6:41 PM [facility] Total Bilirubin 0.7 0.0 - 1.4 mg/dL LAB CHEMISTRY METHOD 07/13/2024 6:41 PM [facility] Blood Venous blood specimen / Unknown Venipuncture / Unknown 07/13/2024 3:20 PM EDT 07/13/2024 3:20 PM EDT C Ross Aguilar MD LAB BLOOD ORDERABLES Final Res ult [facility] [address] [place] [address], [place] [phone] from Last [address] [facility] Care Teams Heavy Threader Relationship Specialty Start Date End Date Kimberly Aguilar MD [address] [place] [address] PCP - General 05/20/06
--- OUTSIDE RECORDS SUMMARY | 2024-08-23 13:31 | XMS_ITS | Clinical Summary ---
Author Organization [facility] Address [address] [place] [address] Care Team Providers Care Deck And Hull Assembler Name Role Phone Curt Aguilar MD Primary Care Provider [phone] Allergies No known active allergies Medications Medication Sig Dispensed Refills Start Date End Date Status aspirin 81 MG chewable tablet Chew 1 tablet (81 mg total) by mouth daily. 30 tablet 1 02/10/2022 Active atorvastatin (LIPITOR) tablet 80 mg Take 1 tablet (80 mg total) by mouth every evening. 30 tablet 1 02/09/2022 Active amLODIPine (NORVASC) tablet 10 mg 0 05/24/2022 Active losartan (COZAAR) tablet 25 mg Take 1 tablet (25 mg total) by mouth daily. 0 06/30/2022 Active Active Problems Problem Noted Date Diagnosed Date Stroke with cerebral ischemia 02/07/2022 Acute CVA (cerebrovascular accident) 02/07/2022 Social History Tobacco Use Types Packs/Day Years Used Date Smoking Tobacco: Every Day Cigarettes 2 Smokeless Tobacco: Never Tobacco Cessation:Ready to Q uit: Not Asked; Counseling Given: Not Answered Alcohol Use Standard Drinks/Week Comments Yes 0 (1 standard drink = 0.6 oz pur e alcohol) Socially Sex and Gender Information Value Date Recorded Sex Assigned at Male 02/06/2022 5:51 PM EDT Gender Identity Not on file Sexual Orientation Not on file Job Start Date Occupation Industry Not on file Not on file Not on file Last Filed Vital Signs Vital Sign Reading Time Taken Comments Blood Pressure 130/70 08/18/2022 9:40 AM EDT Pulse 66 08/18/2022 9:40 AM EDT Temperature 36.4 ??C (97.6 ??F) 02/09/2022 11:43 AM E DT Respiratory Rate 20 02/09/2022 11:43 AM EDT Oxygen Saturation 98% 08/18/2022 9:40 AM EDT Inhaled Oxygen Concentration - - Weight 82.1 kg (181 lb) 07/08/2022 9:44 AM EDT Height 172.7 cm (5' 8 ) 07/08/2022 9:44 AM EDT Body Mass Index 27.52 07/08/2022 9:44 AM EDT Plan of Treatment Health Maintenance Due Date Last Done Comments Hepatitis C Screening 1965 COVID-19 Vaccine (#1) 1963 Pneumococcal Vaccine (1 of 2 - PCV) 1969 Depression Screening 1975 Preventative Health Evaluation 1981 Tobacco Cessation Counseling 1981 Colon Cancer Screening (Colonoscopy) 2008 Shingrix-Zoster Vaccine (1 o f 2) 2013 BMI Counseling 05/26/2023 05/26/2022, 03/03/2022 Influenza Vaccine (#1) 2023 2, 02/16/2014 DTap / Tdap / Td (2 - Td or Tdap) 02/17/2024 02/16/2014, 01/11/2008 RSV Adult > 60+ Yrs or (1 - 1-dose 75+ series) 2038 Hepatitis B Vaccines Aged Out No long er eligible based on patient's age to complete this topic RSV Ped < 20 months Aged Out No longe r eligible based on patient's age to complete this topic Advance Directives For more information, please contact: [phone] Latest Code Status on File Code Status Date Activated Date Inactivated Comments Full Code 02/07/2022 1:25 AM 02/09/2022 8:29 PM Thi s code status was ascertained in the following way: discussion with patient . Care Teams Deck And Hull Assembler Relationship Specialty Start Date End Date Curt Aguilar MD PCP - General Jailer Chief 02/06/22
--- OUTSIDE RECORDS SUMMARY | 2024-08-23 13:31 | XMS_ITS | Encounter Summary ---
Author Organization [facility] Address [address] [place] [address] Care Team Providers Care Sterile Processing Tech Name Role Phone Kimberly Aguilar MD Primary Care Provider [phone] Encounter Details Date Type Department Care Team (Late Contact Info) Description 08/21/2024 11:25 AM EDT Ancillary Procedure Cardiac Arrythmia - [place] [address] [place] [address] Arrived Social History Tobacco Use Types Packs/Day Years Used Date Smoking Tobacco: Every Day Cigarettes 1 42.4 Started: 1982 Smokeless Tobacco: Never Alcohol Use Standard Drinks/Week Comments Yes 0 (1 standard drink = 0.6 oz pur e alcohol) social Sex and Gender Information Value Date Recorded Sex Assigned at Not on file Legal Sex Male 5:13 PM EST Gender Identity Not on file Sexual Orientation Not on file documented as of this encounter Plan of Treatment Upcoming Encounters Date Type Department Care Team (Late Contact Info) Description 08/31/2024 3:15 PM EDT Clinical Support Lung Screening Program - [place] [address] [facility] [address] [place] [phone] 08/31/2024 3:[address] [facility] Scan [address] [place] [phone] 02/06/2025 2:45 PM EDT Office Visit Adult Medicine - [place] [address] [place] [phone] Kimberly Aguilar MD [address] [place] [address] documented as of this encounter Procedures Procedure Name Priority Date/Time Associated Diagnosis Comments CARDIAC DEVICE CHECK- REMOTE- MURJ Routine 08/21/2024 11:20 AM EDT documented in this encounter Results * Cardiac device check - Remote- MURJ (08/21/2024 11:20 AM EDT) Date Time Interrogation Session [id number] CV DEVICE CHECK Type Interrogation Session Remote CV DEVICE CHECK Implantable Pulse Generator Stripper Apprentice MDT CV DEVICE CHECK Implantable Pulse Generator Type ILR CV DEVICE CHECK Implantable Pulse Generator Model [id number] CV DEVICE CHECK Implantable Pulse Generator Serial Number [id number] CV DEVICE CHECK Implantable Pulse Generator Implant [...] John Gates MD CV IMPLANTABLE CARDIAC DEVICE NM OCEDURES Final Result documented in this encounter Visit Diagnoses Not on filedocumented in this encounter Care Teams Sterile Processing Tech Relationship Specialty Start Date End Date Kimberly Aguilar MD [address] [place] [address] PCP - General 05/20/06 documented as of this encounter
--- OUTSIDE RECORDS SUMMARY | 2024-08-23 13:31 | XMS_ITS | Clinical Summary ---
Author Organization [address] [address] Phone Care Team Providers Care Geothermal System Installer Name Role Phone Unavailable Primary Care Provider Unavailabl e Social History Tobacco Use Types Packs/Day Years Used Date Smoking Tobacco: Never Assessed Sex and Gender Information Value Date Recorded Sex Assigned at Not on file Legal Sex Male 5:54 PM EDT Gender Identity Not on file Sexual Orientation Not on file Plan of Treatment Health Maintenance Due Date Last Done Comments HIV screening 1976 Hepatitis C screening 1981 Tetanus adult (Td q 10,TDAP once) 1983 Lipid disorder screening 2003 Colon cancer screening, Colonoscopy 2008 Diabetes screening 2008 Pneumococcal Vaccine (50+ ye ars) (1 of 1 - PCV) 2013 Shingles vaccine (Shingrix) (1 of 2 - Shingrix (RZV) 2 Dose Standard Series) 2013 Covid-19 vaccine series ( - 2023- season) 2023 Influenza vaccine 12/11/2024 RSV Immunization (1 - 1-dose 75+ series) 2038 Meningococcal Vaccine Aged Out No dc rachel eligible based on patient's age to complete this topic
--- NOTE | 2024-08-23 13:35 | MHC.OFFVIS ---
Intake Visit Reasons: 4m/PSA Intake Note: Patient is present for 4M/PSA Urology Medication:FINASTERIDE Antibiotic Allergy:NONE Blood Thinner:NONE Multiple Knife Edge Trimmer Operator Required: No Allergies No Known Allergies Allergy (Verified 08/23/24 13:37) HPI Comments Details: Anatoliy is a pleasant male. He is a patient of Dr. Ospina. He seen for the following urologic conditions - prostate cancer 4 month lab review PSA stable, adequate urinary performance PSA 05/06 3.7, 09/03 3.9 Encourage monthly cycling of finasteride Small volume, grade group 2 prostate adenocarcinoma Based on staging and genetic review will start with active surveillance protocol 4 month follow-up PSA Prostate cancer - 11/0224 Grade Group 2, Ultra low volume - (NCCN 2.2023) Prolaris - low risk, recommend active surveillance MRI - 70 g prostate, no clear area of abnormality, PiRADS 2 PSA 09/02 5.0 Free 4% Size at TRUS - 80gm pT1c Histologic type: Adenocarcinoma, acinar type Histologic grade: Durham score: 3+4=7 (left mid lateral 15% and medial 5%; right base medial 15%) % of pattern 4: 30% Grade group: 2 Number cores positive: 3 Total number of cores: 12 % of tissue involved: Less than 5% of all tissue examined [facility] Medical History Tobacco abuse disorder Insomnia Lumbago Hypercholesteremia Hematuria Orchialgia CVA (cerebral vascular accident) Hypertension Elevated PSA Social History Alcohol intake: former Comment: very few Patient Tobacco Use Status: Current everyday Tobacco user Tobacco use type: Cigarette Years Smoked: 23 Review of Systems Const Denies chills and Denies fever(s) Card Reports no additional complaints and Denies syncope Resp Denies cough GI Denies abdominal pain and Denies heartburn Reports as per HPI and Denies change in libido Neuro Denies syncope Psych Denies change in libido Endo Denies change in libido Physical Exam Const General: cooperative, healthy appearing, comfortable and no acute distress Orientation/consciousness: patient oriented x3 HEENT Face and sinus: Yes normal facial exam Mouth: moist mucous membranes Neck Neck: Yes normal visual inspection, Yes full ROM and Yes trachea midline Chest Chest palpation & inspection: normal inspection of the chest Resp Effort & Inspection: normal respiratory effort, able to speak in complete sentences and no respiratory distress GI Inspection: Yes normal to inspection Back/Spine/Pelvis Cervical Spine: normal cervical lordosis Thoracic/Lumbar Spine: thoracic and lumbar spine normal to inspection Skin General skin exam: no rashes or lesions noted Neuro General: patient oriented x3, gait normal, tone normal and moves all extremities Extrem General: Yes normal to inspection and Yes capillary refill normal Assessment & Plan Assessment & Plan (1) Prostate cancer: Comment: Grade group 2, ultra low volume Code(s): C61 - Malignant neoplasm of prostate Category: Medical Plan Four month follow-up to PSA Orders: Orders Prostate Specific Antigen 4 Months C61 - Malignant neoplasm of prostate Patient Instructions: This note is constructed using voice recognition software. While every effort has been made to ensure accuracy recruitment intern errors may have been included. Imaging studies, laboratory and physical exam results were discussed and reviewed in detail. No major barriers to patient understanding were identified. An opportunity to ask questions regarding the treatment plan was provided. All questions were answered. The patient expressed understanding and agreement with the above treatment plan. The patient is aware they should contact our office by phone for worsening of their current condition or the appearance of new urologic symptoms. Compliance is encouraged with any medications and followup testing that is ordered. It is a privilege to participate in the urologic care of your patient. If you have any questions or concerns regarding treatment for the above conditions, or other urologic issues, please do not hesitate to contact me. The office telephone contact is [phone]. Sincerely, Dr Javed Green MD, [facility] [place] - Urology Compassionate Specialist Care for the Genitourinary System Coding Level of Care Code Est Pt Level 3 (80501) Complex EM visit Add On G2211 Diagnoses Prostate cancer C61
== END 2024-08-23 14:01 | disposition home or self-care (01) ==
LOC: HO.HUSH 13:18
PROVIDERS: PCP Pediatrics; Visit Provider Urology
DX: C61 Malignant neoplasm of prostate (principal)
CPT/HCPCS: 99213

== ENCOUNTER → 2024-08-23 13:17 | Outpatient (BNVA) | payer BC, SELFPAY | PROVIDERS: PCP Pediatrics; Visit Provider Urology ==

== ENCOUNTER 2024-12-26 14:57 | Outpatient (AMB) | payer BC, SELFPAY ==
--- NOTE | 2024-12-26 14:58 | A.OFFVIS_ITS ---
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 He is a patient of Dr. Ospina. He seen for the following urologic conditions - prostate cancer Telemedicine Evaluation 15 min Consultation [employer] Video 4 month lab review PSA stable, adequate urinary performance PSA has slowly reduced since initial diagnosis Review in 4 months PSA 05/06 3.7, 09/03 3.9, 01/04 2.4 Encourage monthly cycling of finasteride Small volume, grade group 2 prostate adenocarcinoma Based on staging and genetic review will start with active surveillance protocol 4 month follow-up PSA Prostate cancer - 11/0224 Grade Group 2, Ultra low volume - (NCCN 2.2023) Prolaris - low risk, recommend active surveillance MRI - 70 g prostate, no clear area of abnormality, PiRADS 2 PSA 09/02 5.0 Free 4% Size at TRUS - 80gm pT1c Histologic type: Adenocarcinoma, acinar type Histologic grade: Kelsea score: 3+4=7 (left mid lateral 15% and medial 5%; right base medial 15%) % of pattern 4: 30% Grade group: 2 Number cores positive: 3 Total number of cores: 12 % of tissue involved: Less than 5% of all tissue examined [facility] Medical History Tobacco abuse disorder Insomnia Lumbago Hypercholesteremia Hematuria Orchialgia CVA (cerebral vascular accident) Hypertension Elevated PSA Social History Alcohol intake: former Comment: very few Patient Tobacco Use Status: Current everyday Tobacco user Tobacco use type: Cigarette Years Smoked: 23 Review of Systems Const All systems reviewed & are unremarkable except as noted in HPI and below Reports no additional complaints Resp Reports no additional complaints GI Reports no additional complaints Reports as per HPI Musc Reports no additional complaints Physical Exam Telemedicine evaluation Appropriate responses Regular breathing rate and rhythm HEENT Head: Yes normal to inspection Ears: hearing grossly normal bilaterally Eyes General: appearance normal, both eyes and all related structures Neck Neck: Yes normal visual inspection Chest Chest palpation & inspection: normal inspection of the chest Resp Effort & Inspection: normal respiratory effort and able to speak in complete sentences Telehealth Telehealth Telehealth Platform: [employer] Location of provider rendering services: practice address Location of patient: address on file Patient Identification confirmed using: Name, : Yes Telehealth method: video Patient verbally consented to treatment: Yes Patient verbally consented to billing insurance company: Yes Patient informed of any privacy concerns related to visit: Yes Assessment & Plan Assessment & Plan (1) Prostate cancer: Comment: Grade group 2, ultra low volume Code(s): C61 - Malignant neoplasm of prostate Category: Medical Plan Four month follow-up PSA Orders: Orders Prostate Specific Antigen 4 Months C61 - Malignant neoplasm of prostate Patient Instructions: This note is constructed using voice recognition software. While every effort has been made to ensure accuracy customer service correspondence clerk errors may have been included. Imaging studies, laboratory and physical exam results were discussed and reviewed in detail. No major barriers to patient understanding were identified. An opportunity to ask questions regarding the treatment plan was provided. All questions were answered. The patient expressed understanding and agreement with the above treatment plan. The patient is aware they should contact our office by phone for worsening of their current condition or the appearance of new urologic symptoms. Compliance is encouraged with any medications and followup testing that is ordered. It is a privilege to participate in the urologic care of your patient. If you have any questions or concerns regarding treatment for the above conditions, or other urologic issues, please do not hesitate to contact me. The office telephone contact is [phone]. Sincerely, Dr Javed Green MD, [facility] - Urology Compassionate Specialist Care for the Genitourinary System Coding Level of Care Code Tele Est Pt Level 3 (41183) Complex EM visit Add On G2211 Diagnoses Prostate cancer C61
--- OUTSIDE RECORDS SUMMARY | 2024-12-26 18:35 | XMS_ITS | Encounter Summary ---
Author Organization [facility] Address [address] [place] [address] Care Team Providers Care Turbo Operator Name Role Phone Kimberly Aguilar MD Primary Care Provider Encounter Details Date Type Department Care Team (Late Contact Info) Description 09/13/2024 Lab Requisition [facility] [address] [place] [phone] Liam Cates MD [address] [address] Encounter for screening for malignant neoplasm of colon Social History Tobacco Use Types Packs/Day Years Used Date Smoking Tobacco: Every Day Cigarettes 1 40.7 Started: 1984 Smokeless Tobacco: Never Alcohol Use Standard Drinks/Week [...] Department Care Team (Late Contact Info) Description 02/06/2025 2:45 PM EDT Office Visit Adult Medicine - [place] [address] [place] [id number] Kimberly Aguilar MD [address] [place] [address] documented as of this encounter Procedures Procedure Name Priority Date/Time Associated Diagnosis Comments TISSUE EXAM Routine 09/12/2024 Encounter for screening for malignant neoplasm of colon documented in this encounter Results * Tissue Exam (09/12/2024) Final Diagnosis A. Polyps (x2 per specimen label), cecum, polypectomy: - Tubular adenoma(s) (three fragments). B. Polyps (x5 per specimen label), hepatic flexure, polypectomy: - Tubular adenoma(s) (multiple fragments). C. Polyps (x2 per specimen label), rectum, polypectomy: - Tubular adenoma(s) (two fragments). - Colonic mucosa with features suggestive of a hyperplastic polyp (one fragment). 09/14/2024 10:19 AM [facility] Clinical Information Screening for colorectal malignant neoplasm 09/14/2024 10:19 AM [facility] ([facility] Gross Description A. Large Intestine, Cecum, polyp x2: Labeled colon, cecum, x 2 polyp . Received in formalin, are three irregular soft to rubbery, cornelius tissue fragments, approximately ranging from 0.25 cm to 0.5 cm in greatest diameters, which are wrapped in paper and submitted in toto in one cassette, three pieces, multiple levels. hs/DG B. Large intestine, Hepatic flexure, polyp x5: Labeled colon-hepatic flexure, x 5 polyp . Received in formalin, are multiple irregular soft to rubbery, cornelius-brown polypoid tissue fragments, approximately ranging from 0.1 cm to 1.3 cm in greatest diameters and aggregating to 2.4 x 1.3 x 0.5 cm. The polypoid tissue fragment is inked green at the margin, trisected, and admixed with fecal/food debris. The specimen is wrapped in paper and entirely submitted in toto in three cassettes, multiple pieces, multiple levels. 1-smaller polypoid tissue fragments (multiple pieces) please note: Small tissue fragments may not survive processing. 2-ends of polypoid tissue fragment (two pieces) 3-middle (one piece) C. Large Intestine, Rectum, polyp x2: Labeled colon-rectum, x 2 polyp . Received in formalin, are three irregular soft to rubbery, white tissue fragments, approximately ranging from 0.4 cm to 0.6 cm in greatest diameters, which are wrapped in paper and submitted in toto in one cassette, three pieces, multiple levels. hs/DG 09/14/2024 10:19 AM EDT [facility] Disclaimer Unless otherwise specified, all tissue is 10% NB formalin fixed and paraffin embedded. 09/14/2024 10:19 AM EDT [facility] Tissue Rectum structure / Unknown 09/12/2024 09/13/2024 9:04 AM EDT Tissue specimen (specimen) Structure of right colic flexure / Unknown 09/12/2024 09/13/2024 9:04 AM EDT Tissue specimen (specimen) Rectum structure / Unknown 09/12/2024 09/13/2024 9:04 AM EDT us Liam Cates MD LAB PATHOLOGY ORDERABLES Candelaria toro Result [facility] [address] [place] [address], documented in this encounter Visit Diagnoses Diagnosis Encounter for screening for malignant neoplasm of colon documented in this encounter Care Teams Turbo Operator Relationship Specialty Start Date End Date Kimberly Aguilar MD [address] [place] [id number] PCP - General 05/20/06 documented as of this encounter
--- OUTSIDE RECORDS SUMMARY | 2024-12-26 18:35 | XMS_ITS | Clinical Summary ---
Author Organization [address] Address [address] [place] [phone] Phone Care Team Providers Care Lymphedema Therapist Name Role Phone Unavailable Primary Care Provider [...] Series) 2013 Covid-19 vaccine series ( - season) 2024 Influenza vaccine 12/11/2024 RSV Immunization (1 - 1-dose 75+ series) 2038 Meningococcal B Vaccine Aged Out No l onger eligible based on patient's age to complete this topic Meningococcal Vaccine Aged Out No dc rachel eligible based on patient's age to complete this topic
--- OUTSIDE RECORDS SUMMARY | 2024-12-26 18:35 | XMS_ITS ---
Author Name [facility] Organization [facility] Encounters Encounter Type Encounter Reason Primary Diagnosis Location Date [facility] [facility] 10/18/2024 Ambulatory [facility] 09/22/2024 Ambulatory [facility] 08/21/2024 Ambulatory [facility] 07/17/2024 Ambulatory [facility] 06/14/2024 Ambulatory [facility] 05/04/2024 Ambulatory [facility] 04/06/2024 Ambulatory [facility] 03/01/2024 Care Team Organization Name Specialty Phone Email Start Date End Da te [facility] 03/05/2024 [facility] 03/03/2024 [facility] [place]24 [facility] 10/01/2022 [facility] 09/09/2022 09/09/2022 [facility] Primary Care 02/17/2022 11/29/2023 [facility] Primary Care 05/26/2022
--- OUTSIDE RECORDS SUMMARY | 2024-12-26 18:35 | XMS_ITS | Clinical Summary ---
Author Organization [facility] [address] 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 4 Active atorvastatin (LIPITOR) 80 mg tablet Take 1 Tablet by mouth daily. 4 Active betamethasone, augmented, (DIPROLENE-AF) 0.05 % cream Apply bid prn rash 4 Active finasteride (PROSCAR) 5 mg tablet TAKE 1 TABLET BY MOUTH EVERY DAY FOR 90 DAYS CALENDAR MONTH ON, CALENDAR MONTH OFF 4 Active ketoconazole (NIZORAL) 2 % shampoo Apply weekly prn rash 4 Active losartan (COZAAR) 25 mg tablet TAKE 1 TABLET BY MOUTH EVERY DAY 90 tablet 1 5 Active polyethylene glycol (Golytely) 236-22.74-6.74 -5.86 gram solution Take 4L by mouth once for one dose. May substitue any PEG. Starting at 6PM the night before your procedure drink 1 8oz glasses at your own pace until you complete half of the gallon. Finish 2nd half of the gallon 5 hours before your procedure. 4000 mL 5 Active bisacodyL (DULCOLAX) 5 mg EC tablet Take 2 tablets by mouth right before beginning bowel prep. See instructions provided by the office 2 tablet 5 Active amLODIPine (NORVASC) 10 mg tablet TAKE 1 TABLET BY MOUTH EVERY DAY 90 tablet 1 Active Active Problems Problem Noted Date Diagnosed Date Colon cancer screening 09/14/2024 Overview (09/14/2024): 10/04 Slitmohity. Polyp x 10---1 yr Overweight (BMI 25.0-29.9) 07/18/2024 Elevated blood sugar 05/18/2023 Overview (03/01/2024): 06/05 Elevated PSA 07/01/2022 Overview (03/01/2024): 07/02 BX 11/02 Hypertension 02/25/2022 CVA (cerebral vascular accident) (CMS/HCC [...] flareups--better with PT Tobacco use disorder 05/02/2009 Overview (09/03/2024): LDCT 09/03 neg. 12 mo Encounters Date Type Department Care Team Description 12/20/2024 2:25 PM EDT Ancillary Procedure Cardiac Arrythmia - [place] [address] [place] [address] 11/09/2024 2:30 PM EDT Ancillary Procedure Cardiac Arrythmia - [place] [address] [place] [address] 10/18/2024 1:45 PM EDT Ancillary Procedure Cardiac Arrythmia - [place] [address] [place] [address] from Last 3 Months Immunizations Name [...] Hypercholesterolemia Cerebrovascular accident (CV A), unspecified mechanism (CMS/[facility] V24, [facility] V28) Tobacco use Orchialgia Hematuria Family History [...] 59 07/18/2024 3:38 PM EDT Temperature 36.8 C (98.2 F) 08/31/2024 3:13 PM EDT Respiratory Rate - - Oxygen Saturation - - Inhaled Oxygen Concentration - - Weight 80.7 kg (178 lb) 07/18/2024 3:38 PM EDT Height 172.7 cm (5' 8 ) 07/18/2024 3:38 PM EDT Body Mass Index 27.06 07/18/2024 3:38 PM EDT Plan of Treatment Upcoming Encounters Date Type Department Care Team ([facility] st Contact Info) Description 02/06/2025 2:45 PM EDT Office Visit Adult Medicine - [place] [address] [place] [address] Kimberly Aguilar MD [address] [place] [address] Health Maintenance Due Date Last Done Comments COVID-19 Vaccine (#1) 1968 Pneumococcal Vaccine: 50+ Years (1 of 2 - PCV) 1982 Zoster Vaccines (1 of 2) 1982 HIV Screening 03/14/2022 Hepatitis C Screening 03/14/2022 Social Influencers of Health Screening 03/14/2022 Depression Screening 04/12/2024 Influenza Vaccine (#1) 2024 02/25/2022, 2013 Hypertension/CHF/CAD Annual BMP Blood Test 07/13/2025 07/13/2024, 05/14/2023, 02/08/2022, Additional history exists Lung Cancer Screening (Low Dose CT) 08/31/2025 08/31/2024 Cholesterol Screening (Lipid Panel) 07/13/2029 07/13/2024, 05/14/2023, 02/06/2022, Additional history exists DTaP,Tdap,and Td Vaccines (4 - Td or Tdap) 07/18/2034 07/18/2024, 02/16/2014, 01/11/2008 Colorectal Cancer Screening: Colonoscopy 09/12/2034 09/12/2024, 09/12/2024 RSV Immunization Adult Patients (1 - 1-dose [...] this topic Medical Devices Implanted Type 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 Device Identifier Shelf Expiration Date Model / Serial / Lot Medt-Card [id number] Implanted:06/10 (Quantity not on file) Cardiac Loop Recorder [employer] - CARDIAC RHYTH-CRDM [id number] / [id number] / Procedures Procedure Name Priority Date/Time Associated Diagnosis Comments PROSTATE SPECIFIC ANTIGEN SCREEN Routine 12/20/2024 3:40 PM EDT Malignant neoplasm of prostate (CMS/HCC V24, CMS/HCC V28) CARDIAC DEVICE CHECK- REMOTE- MURJ Routine 12/20/2024 2:24 PM EDT CARDIAC DEVICE CHECK- REMOTE- MURJ Routine 11/09/2024 2:26 PM EDT CARDIAC DEVICE CHECK- REMOTE- MURJ Routine 10/18/2024 1:42 PM EDT EXTERNAL COLONOSCOPY REPORT Routine 09/12/2024 1:[address] LUNG SCREENING Routine 08/31/2024 4:0 9 PM EDT Encounter for screening for lung cancer Cigarette smoker COMPREHENSIVE METABOLIC PANEL Routine 07/13/2024 3:20 PM EDT Hypercholesteremia Elevated blood sugar LIPID PANEL WITH REFLEX TO DIRECT LDL Routine 07/13/2024 3:20 PM EDT Hypercholesteremia from Last 3 Months or Most Recently Relevant to Health Maintenance Results * Prostate specific antigen screen (12/20/2024 3:40 PM EDT) PSA 2.37 0.00 - 4.00 ng/mL LAB CHEMISTRY METHOD 12/20/2024 8:20 PM EDT [facility] Blood Venous blood specimen / Unknown Venipuncture / Unknown 12/20/2024 3:40 PM EDT 12/20/2024 3:40 PM EDT Narrative [facility] - 12/20/2024 8:20 PM EDT The Siemens Advia Centaur Chemiluminescent Immunoassay is used. Results obtained with different assay methods or kits cannot be used interchangeably. Results cannot be interpreted as absolute evidence of the presence or absence of malignant disease. us Javed Green MD LAB BLOOD ORDERABLES Final Re sult [facility] [address] [place] [address], * Cardiac device check - Remote- MURJ (12/20/2024 2:24 PM EDT) Only the most recent of3 resultswithin the time period is included. 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 MDT CV DEVICE CHECK Implantable Pulse Generator Type ILR CV DEVICE CHECK Implantable Pulse Generator Model LNQ22 CV DEVICE CHECK Implantable Pulse Generator Serial Number [id number] CV DEVICE CHECK Implantable Pulse Generator Implant Date [id number] CV DEVICE CHECK Date of Service 2024-12-20 CV DEVICE CHECK Anatomical Region Laterality Modality Device Interroga tion 12/07/2024 11:1 2 PM EDT Impressions 12/20/2024 12:46 PM EDT Normal Remote: No Events * This is a normal remote diagnostic device check * Alerts or events: None * Battery data was reviewed * Battery status: Good * Presenting rhythm reviewed, SR * Heart Rate Histograms reviewed Normal Remote: No Events * This is a normal remote diagnostic device check * Alerts or events: None * Battery data was reviewed * Battery status: , * Presenting rhythm reviewed * Heart Rate Histograms reviewed Narrative Procedure Note Jose Miguel Miles MD - 12/20/2024 IMPRESSION: Normal Remote: No Events * This is a normal remote diagnostic device check * Alerts or events: None * Battery data was reviewed * Battery status: Good * Presenting rhythm reviewed, SR * Heart Rate Histograms reviewed Normal Remote: No Events * This is a normal remote diagnostic device check * Alerts or events: None * Battery data was reviewed * Battery status: , * Presenting rhythm reviewed * Heart Rate Histograms reviewed Jose Miguel Miles MD CV IMPLANTABLE CARDIAC DEV ICE PROCEDURES Final Result * External Colonoscopy Report (09/12/2024 1:28 PM EDT) Anatomical Region Laterality Modality Endoscopy Historical Provider MD FISCHER~PROCEDURE ORDERABLES F inal Result * CT Lung Screening (08/31/2024 4:09 PM EDT) Anatomical Region Laterality Modality Chest Computed Tomogra phy 09/01/2024 2:36 PM EDT Impressions 09/01/2024 2:43 PM EDT There is underlying emphysema. There is a 0.5 cm nodule in the right upper lobe. LUNG RADS: Lung-RADS 2: BENIGN S Modifier (Significant or Potentially Significant Findings): None present No suspicious nonpulmonary findings. RECOMMENDATIONS: 12 month screening low dose [address] -------- FINAL REPORT -------- Dictated By: Tim Aguilar Dictated Date: 09/01/2024 14:36 ET Assigned Physician: Tim Aguilar Reviewed and Electronically Signed By: Tim Aguilar Signed Date: 09/01/2024 14:43 ET Workstation ID: [id number] Transcribed By: Self Edit Transcribed Date: 09/01/2024 14:36 ET Narrative 09/01/2024 2:43 PM EDT EXAMINATION: CT CHEST WITHOUT CONTRAST LUNG CANCER SCREENING, LOW DOSE CLINICAL INFORMATION: Lung cancer screening. Current smoker. COMPARISON: None TECHNIQUE: Multidetector CT. Examination of the chest. Examination of the chest without IV contrast. Reformatting in the coronal and sagittal planes. Device: Revolution Traverse DLP: 176 mGy-cm CTDI: 4.89 Dose optimization was performed including the use of low-dose iterative reconstruction technique with automatic exposure control based on patient size. Type of contrast: None Volume of IV contrast: None Volume of contrast discarded: 0 mL FINDINGS: LUNG: No abnormality of the trachea or mainstem bronchi. LUNG NODULES: There is a 0.5 cm solid nodule in the periphery of the posterior right upper lobe (3/78). There are a few other scattered micronodules all of which measure less than 0.4 cm. OTHER PULMONARY: There is at least mild centrilobular emphysema. There are some pleural associated nodules all of which measure less than 0.7 cm. There are a few minor linear/bandlike opacities but no honeycomb formation. MEDIASTINUM: There are no enlarged mediastinal or hilar lymph nodes. No suspicious abnormalities of the esophagus. CARDIAC: The heart is not enlarged. No pericardial fluid or thickening There are mild coronary calcifications. VASCULAR: There is no thoracic aortic aneurysm. The main pulmonary artery is normal caliber PLEURA: There is no pleural fluid or pneumothorax AXILLA/CHEST WALL: There are no enlarged axillary lymph nodes. No chest wall mass demonstrated. There is an implanted monitor in the medial left upper chest wall. VISUALIZED UPPER ABDOMEN: No suspicious abnormality on limited assessment of the visualized upper abdomen. MUSCULOSKELETAL: No suspicious focal bony lesion demonstrated. Procedure Note Tim Aguilar MD - 09/01/2024 EXAMINATION: CT CHEST WITHOUT CONTRAST LUNG CANCER SCREENING, LOW DOSE CLINICAL INFORMATION: Lung cancer screening. Current smoker. COMPARISON: None TECHNIQUE: Multidetector CT. Examination of the chest. Examination of the chest without IV contrast. Reformatting in the coronal and sagittal planes. Device: Revolution Traverse DLP: 176 mGy-cm CTDI: 4.89 Dose optimization was performed including the use of low-dose iterativereconstruction technique with automatic exposure control based on patientsize. Type of contrast: None Volume of IV contrast: None Volume of contrast discarded: 0 mL FINDINGS: LUNG: No abnormality of the trachea or mainstem bronchi. LUNG NODULES: There is a 0.5 cm solid nodule in the periphery of the posterior rightupper lobe (3/78). There are a few other scattered micronodules all of which measure lessthan 0.4 cm. OTHER PULMONARY: There is at least mild centrilobular emphysema. Thereare some pleural associated nodules all of which measure less than 0.7cm. There are a few minor linear/bandlike opacities but no honeycombformation. MEDIASTINUM: There are no enlarged mediastinal or hilar lymph nodes. Nosuspicious abnormalities of the esophagus. CARDIAC: The heart is not enlarged. No pericardial fluid or thickening There are mild coronary calcifications. VASCULAR: There is no thoracic aortic aneurysm. The main pulmonary arteryis normal caliber PLEURA: There is no pleural fluid or pneumothorax AXILLA/CHEST WALL: There are no enlarged axillary lymph nodes. No chestwall mass demonstrated. There is an implanted monitor in the medial leftupper chest wall. VISUALIZED UPPER ABDOMEN: No suspicious abnormality on limited assessmentof the visualized upper abdomen. MUSCULOSKELETAL: No suspicious focal bony lesion demonstrated. IMPRESSION: There is underlying emphysema. There is a 0.5 cm nodule in the right upper lobe. LUNG RADS: Lung-RADS 2: BENIGN S Modifier (Significant or Potentially Significant Findings): Nonepresent No suspicious nonpulmonary findings. RECOMMENDATIONS: 12 month screening low dose [address] -------- FINAL REPORT -------- Dictated By: Tim Aguilar Dictated Date: 09/01/2024 14:36 ET Assigned Physician: Tim Aguilar Reviewed and Electronically Signed By: Tim Aguilar Signed Date: 09/01/2024 14:43 ET Workstation ID: [id number] Transcribed By: Self Edit Transcribed Date: 09/01/2024 14:36 ET us Ghislaine Pradhan MD [facility] CT PROCEDURES Final Result * (ABNORMAL) Lipid panel with reflex to direct LDL (07/13/2024 3:20 PM EDT) Cholesterol 235(H) 0 - 200 mg/dL LAB CHEMISTRY METHOD 07/13/2024 6:41 PM EDT [facility] Triglycerides 152(H) 0 - 150 mg/dL LAB CHEMISTRY METHOD 07/13/2024 6:41 PM EDT [facility] HDL 64 >=40 mg/dL LAB CHEMISTRY METHOD 07/13/2024 6:41 PM EDT [facility] LDL Calculated 141(H) 0 - 100 mg/dL LAB CHEMISTRY METHOD 07/13/2024 6:41 PM EDT [facility] VLDL Cholesterol Julio 30.4 mg/dL LAB CHEMISTRY METHOD 07/13/2024 6:41 PM T [facility] Non HDL Chol. (LDL+VLDL) 171(H) <145 mg/dL LAB CHEMISTRY METHOD 07/13/2024 6:41 PM T [facility] Chol/HDL Ratio 3.7 0.0 - 4.4 LAB CHEMISTRY METHOD 07/13/2024 6:41 PM [facility] Blood Venous blood specimen / Unknown Venipuncture / Unknown 07/13/2024 3:20 PM EDT 07/13/2024 3:20 PM EDT [facility] Ross Aguilar MD LAB BLOOD ORDERABLES Final Res ult [facility] [address] [place] [address], * Comprehensive metabolic panel (07/13/2024 3:20 PM EDT) Sodium 139 133 - 145 mmol/L LAB CHEMISTRY METHOD 07/13/2024 6:41 PM [facility] Potassium 3.6 3.5 - 5.5 mmol/L LAB CHEMISTRY METHOD 07/13/2024 6:41 PM [facility] Chloride 106 96 - 110 mmol/L LAB CHEMISTRY METHOD 07/13/2024 6:41 PM [facility] CO2 23 21 - 32 mmol/L LAB CHEMISTRY METHOD 07/13/2024 6:41 PM [facility] Anion Gap 10 3 - 11 LAB CHEMISTRY METHOD 07/13/2024 6:41 PM [facility] Glucose 92 70 - 100 mg/dL LAB CHEMISTRY METHOD 07/13/2024 6:41 PM [facility] BUN 20 5 - 25 mg/dL LAB CHEMISTRY METHOD 07/13/2024 6:41 PM [facility] Creatinine 0.99 0.70 - 1.30 mg/dL LAB CHEMISTRY METHOD 07/13/2024 6:41 PM [facility] eGFR 87 >=60 mL/min/1. 73m2 LAB CHEMISTRY METHOD 07/13/2024 6:41 PM [facility] Comment:Calculation based on the Chronic Kidney Disease Epidemiology Collaboration (CKD-EPI) equation refit without adjustment for race. BUN/Creatinine Ratio 20.2 LAB CHEMISTRY METHOD 07/13/2024 6:41 PM [facility] Calcium 9.4 8.5 - 10.5 mg/dL LAB CHEMISTRY METHOD 07/13/2024 6:41 PM [facility] AST (SGOT) 16 10 - 42 unit/L LAB CHEMISTRY METHOD 07/13/2024 6:41 PM [facility] ALT (SGPT) 19 10 - 60 unit/L LAB CHEMISTRY METHOD 07/13/2024 6:41 PM [facility] Alkaline Phosphatase 95 42 - 121 unit/L LAB CHEMISTRY METHOD 07/13/2024 6:41 PM [facility] Total Protein 7.4 6.0 - 8.0 g/dL LAB CHEMISTRY METHOD 07/13/2024 6:41 PM [facility] Albumin 4.2 3.2 - 5.0 g/dL LAB CHEMISTRY METHOD 07/13/2024 6:41 PM [facility] Total Bilirubin 0.7 0.0 - 1.4 mg/dL LAB CHEMISTRY METHOD 07/13/2024 6:41 PM [facility] Blood Venous blood specimen / Unknown Venipuncture / Unknown 07/13/2024 3:20 PM EDT 07/13/2024 3:20 PM EDT C Ross Aguilar MD LAB BLOOD ORDERABLES Final Res ult [facility] [address] [place] [address], [place] [phone] from Last 3 Months or Most Recently Relevant to Health Maintenance [facility] Care Teams [employer] Dr[employer]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
== END 2024-12-26 16:30 | disposition home or self-care (01) ==
LOC: HO.HUSH 14:57
PROVIDERS: PCP Pediatrics; Visit Provider Urology
DX: C61 Malignant neoplasm of prostate (principal)
CPT/HCPCS: 99213